=== PATIENT | female | born 1990 | race Caucasian/White ===

== ENCOUNTER 2017-01-13 19:39 | Emergency (ER) | payer BC, OTHER ==
[~2017-01-13] VITALS: Ht 160 cm; Wt 68.0 kg
[2017-01-13 19:42] VITALS: BP 123/80
== END 2017-01-13 20:29 | disposition home or self-care (01) ==
LOC: ED 19:57
DX: H11.32 Conjunctival hemorrhage, left eye (principal); R51 Headache
CPT/HCPCS: 99281